=== PATIENT | female | born 1940 | race African-American/Black ===

== ENCOUNTER 2020-07-13 13:29 | Inpatient (IN) | payer MEDICARE ==
[~2020-07-13] VITALS: Ht 162.6 cm; Wt 113.4 kg
[~2020-07-13 13:29] MED LIST: EPINEPHRINE HCL SYRINGE ONE; SODIUM BICARBONATE 8.4% INJ 50 ML SYR ONE; SUCCINYLCHOLINE CHLORIDE 20 MG/ML 10ML VIAL ONE
[2020-07-13 14:06] LABS: BASOPHILS % 0.2 % (0.0-1.0); EOSINOPHILS # (AUTO) 0.3 (0.0-0.4); EOSINOPHILS % 1.5 % (0.0-6.0); HEMATOCRIT 23.1 % (34.2-44.1); HEMOGLOBIN 7.4 g/dL (12.0-16.0); LYMPHOCYTES # (AUTO) 0.5 (1.0-3.2); LYMPHOCYTES % 2.7 % (18.0-39.1); MEAN CORPUSCULAR HEMOGLOBIN 26.7 pg (28-32); MEAN CORPUSCULAR VOLUME 83.4 fL (81-99); MONOCYTES # (AUTO) 0.6 (0.2-0.8); MONOCYTES % 3.5 % (4.4-11.3); NEUTROPHILS # (AUTO) 16.5 (2.1-6.9); NEUTROPHILS % 90.3 % (38.7-80.0); PLATELET COUNT 442 x10e3/uL (140-360); RED BLOOD COUNT 2.77 x10e6/uL (3.6-5.1); RED CELL DISTRIBUTION WIDTH 16.9 % (11.7-14.4)
[2020-07-13 14:25] LABS: ALANINE AMINOTRANSFERASE 27 IU/L (0-55); ALBUMIN 1.1 g/dL (3.5-5.0); ALBUMIN/GLOBULIN RATIO 0.2 (0.8-2.0); ALKALINE PHOSPHATASE 115 IU/L (40-150); ANION GAP 10.4 mmol/L (8-16); BLOOD UREA NITROGEN 28 mg/dL (7-26); BUN/CREATININE RATIO 34 (6-25); CALCIUM 7.6 mg/dL (8.4-10.2); CARBON DIOXIDE 26 mmol/L (22-29); CHLORIDE 95 mmol/L (98-107); CREATININE, SERUM 0.83 mg/dL (0.57-1.11); EST GLOMERULAR FILTRATION RATE > 60 ML/MIN (60-); GLUCOSE 150 mg/dL (74-118); POTASSIUM 3.4 mmol/L (3.5-5.1); SODIUM 128 mmol/L (136-145)
[2020-07-13 14:49] LABS: BAND NEUTROPHILS % (MANUAL) 1 %; EOSINOPHILS % (MANUAL) 2 % (0-7); LYMPHOCYTES % (MANUAL) 1 % (19-48); MONOCYTES % (MANUAL) 4 % (3.4-9.0); MYELOCYTES % (MANUAL) 1 % (0-0); NEUTROPHILS % (MANUAL) 90 % (40-74)
[2020-07-13] MEDS: CEFEPIME 1GM/NS 0.9% 50 ML 50 ML IV SCH (14:50)
[2020-07-13 14:52] LABS: PLATELET ESTIMATE SLIGHTLY INCREASED
[2020-07-13 14:53] LABS: HYPOCHROMASIA SLIG; PLATELET MORPHOLOGY COMMENT NORMAL; POLYCHROMASIA FEW
[2020-07-13] MEDS ORDERED: SODIUM CHLORIDE 0.9% 1000ML 1,000 ML IV SCH (17:00)
[2020-07-13] MEDS: VANCOMYCIN 500MG/NS 0.9% 100ML 100 ML IV SCH (17:14)
[2020-07-13] MEDS ORDERED: LACTATED RINGER'S 500 ML IV ONE (17:15)
[2020-07-13] MEDS ORDERED: LACTATED RINGER'S 1,000 ML INJ ONE (17:15)
[2020-07-13 17:40] LABS: COLOR,URINE STRAW (YELLOW)
[2020-07-13 17:41] LABS: CLARITY,URINE CLOUDY (CLEAR); KETONES,URINE NEGATIVE (NEGATIVE); LEUKOCYTE ESTERASE ,URINE LARGE (NEGATIVE); NITRITE,URINE NEGATIVE (NEGATIVE); PROTEIN,URINE DIPSTICK 1+ (NEGATIVE); URINE UROBILINOGEN 0.2 mg/dL (0.2 - 1)
[2020-07-13] MEDS ORDERED: ONDANSETRON HCL INJ 2MG/ML 2ML 2 MG/ML VIAL IV PRN (17:45)
[2020-07-13] MEDS ORDERED: ACETAMINOPHEN 325 MG TAB PO PRN (17:45)
[2020-07-13 17:53] LABS: BACTERIA,URINE MODERATE /HPF; RBC,URINE 0-5 /HPF (0-5); WBC,URINE (MAN) 0-5 /HPF (0-5); YEAST,URINE MODERATE
[2020-07-13] MEDS ORDERED: IOPAMIDOL 370 MG/ML 200 ML INFUS..BTL INJ ONE (19:39)
[2020-07-13] MEDS ORDERED: GUAIFENESI100 MG/5 M PEG (22:25)
[2020-07-13] MEDS ORDERED: TYLENOL EXTRA500 MG PEG (22:25)
[2020-07-13] MEDS ORDERED: ARICEPT5 MG PEG (22:25)
[2020-07-13] MEDS ORDERED: TYLENOL # 31 EA PEG (22:25)
[2020-07-13] MEDS ORDERED: LEVEMIR FL100 UNIT/1 SC (22:25)
[2020-07-13] MEDS ORDERED: IPRAT-ALBUT 0.5-3 ML INH (22:25)
[2020-07-13] MEDS ORDERED: HUMALOG100 UNIT/3 SC (22:25)
[2020-07-13] MEDS ORDERED: Santyl TP (22:25)
[2020-07-13] MEDS ORDERED: AQUAPHOR HEALIN50 GM TOP (22:25)
[2020-07-13] MEDS ORDERED: ZOSYN 3.373.375 GM/5 IVP (22:25)
[2020-07-13] MEDS ORDERED: METHYLPHENIDATE5 MG PEG (22:25)
[2020-07-13] MEDS ORDERED: LACTATED RINGER'S 1,000 ML ONE (23:16)
[2020-07-14] MEDS: CEFEPIME 1GM/NS 0.9% 50 ML 50 ML IV SCH ×3 (01:04→16:17)
[2020-07-14] MEDS: VANCOMYCIN 500MG/NS 0.9% 100ML 100 ML IV SCH ×2 (02:10→17:43)
[2020-07-14 04:28] LABS: BASOPHILS % 0.2 % (0.0-1.0); EOSINOPHILS # (AUTO) 0.6 (0.0-0.4); EOSINOPHILS % 3.7 % (0.0-6.0); HEMOGLOBIN 7.2 g/dL (12.0-16.0); LYMPHOCYTES # (AUTO) 0.7 (1.0-3.2); LYMPHOCYTES % 4.1 % (18.0-39.1); MEAN CORPUSCULAR HEMOGLOBIN 26.7 pg (28-32); MEAN CORPUSCULAR HGB CONC 32.1 g/dL (31-35); NEUTROPHILS # (AUTO) 14.3 (2.1-6.9); NEUTROPHILS % 84.3 % (38.7-80.0); PLATELET COUNT 495 x10e3/uL (140-360)
[2020-07-14 04:29] LABS: HEMATOCRIT 22.4 % (34.2-44.1)
[2020-07-14 04:41] LABS: ANION GAP 11.4 mmol/L (8-16); BLOOD UREA NITROGEN 27 mg/dL (7-26); BUN/CREATININE RATIO 39 (6-25); CALCIUM 7.7 mg/dL (8.4-10.2); CARBON DIOXIDE 25 mmol/L (22-29); CHLORIDE 98 mmol/L (98-107); EST GLOMERULAR FILTRATION RATE > 60 ML/MIN (60-); GLUCOSE 85 mg/dL (74-118); POTASSIUM 3.4 mmol/L (3.5-5.1); SODIUM 131 mmol/L (136-145)
[2020-07-14] MEDS ORDERED: SODIUM CHLORIDE 0.9% 250ML 250 ML ONE (13:53)
[2020-07-14] MEDS ORDERED: NOREPINEPHRINE INJ 4MG/4ML 8 MG in DEXTROSE 5% 250ML 250 ML IV STA (14:39)
[2020-07-14] MEDS ORDERED: NOREPINEPHRINE 8 MG/D5W 250 ML 250 ML ONE ×2 (14:50→21:34)
[2020-07-14] MEDS ORDERED: NOREPINEPHRINE INJ 4MG/4ML 8 MG in DEXTROSE 5% 250ML 250 ML IV SCH (21:45)
[2020-07-15] VITALS (19 sets, daily range): BP systolic 85–133; BP diastolic 42–81
[2020-07-15] MEDS: VANCOMYCIN 500MG/NS 0.9% 100ML 100 ML IV SCH ×2 (02:39→15:12)
[2020-07-15 05:52] LABS: BASOPHILS % 0.2 % (0.0-1.0); EOSINOPHILS # (AUTO) 0.1 (0.0-0.4); EOSINOPHILS % 0.3 % (0.0-6.0); HEMATOCRIT 23.5 % (34.2-44.1); HEMOGLOBIN 7.4 g/dL (12.0-16.0); LYMPHOCYTES # (AUTO) 1.2 (1.0-3.2); LYMPHOCYTES % 7.1 % (18.0-39.1); MEAN CORPUSCULAR HGB CONC 31.5 g/dL (31-35); MEAN CORPUSCULAR VOLUME 85.8 fL (81-99); MONOCYTES # (AUTO) 1.6 (0.2-0.8); MONOCYTES % 9.6 % (4.4-11.3); NEUTROPHILS # (AUTO) 12.9 (2.1-6.9); NEUTROPHILS % 78.9 % (38.7-80.0); PLATELET COUNT 525 x10e3/uL (140-360); RED BLOOD COUNT 2.74 x10e6/uL (3.6-5.1)
[2020-07-15 06:24] LABS: ALANINE AMINOTRANSFERASE 28 IU/L (0-55); ALBUMIN 1.3 g/dL (3.5-5.0); ALBUMIN/GLOBULIN RATIO 0.3 (0.8-2.0); ALKALINE PHOSPHATASE 117 IU/L (40-150); ANION GAP 14.9 mmol/L (8-16); BLOOD UREA NITROGEN 34 mg/dL (7-26); BUN/CREATININE RATIO 37 (6-25); CALCIUM 7.9 mg/dL (8.4-10.2); CARBON DIOXIDE 24 mmol/L (22-29); CHLORIDE 97 mmol/L (98-107); CREATININE, SERUM 0.92 mg/dL (0.57-1.11); EST GLOMERULAR FILTRATION RATE > 60 ML/MIN (60-); GLUCOSE 109 mg/dL (74-118); POTASSIUM 3.9 mmol/L (3.5-5.1); SODIUM 132 mmol/L (136-145)
[2020-07-15 06:32] LABS: THYROID STIMULATING HORMONE 4.666 uIU/mL (0.350-4.940)
[2020-07-15] MEDS: CEFEPIME 1GM/NS 0.9% 50 ML 50 ML IV SCH (13:53)
[2020-07-15 15:07] LABS: % IRON SATURATION 7 % (15-50); IRON 10 ug/dL (50-170); TOTAL IRON BINDING CAPACITY 140 ug/dL (261-478); TRANSFERRIN 100 mg/dL (180-382)
[2020-07-16] VITALS (15 sets, daily range): BP systolic 94–142; BP diastolic 53–78
[2020-07-16] MEDS ORDERED: PROPOFOL IV EMULSION 10MG/ML 100 ML IV PRN (02:15)
[2020-07-16] MEDS: VANCOMYCIN 500MG/NS 0.9% 100ML 100 ML IV SCH (03:00)
[2020-07-16 03:54] LABS: BASOPHILS % 0.1 % (0.0-1.0); EOSINOPHILS % 0.2 % (0.0-6.0); LYMPHOCYTES # (AUTO) 0.5 (1.0-3.2); LYMPHOCYTES % 2.7 % (18.0-39.1); MEAN CORPUSCULAR HEMOGLOBIN 26.2 pg (28-32); MEAN CORPUSCULAR HGB CONC 31.8 g/dL (31-35); MONOCYTES # (AUTO) 0.7 (0.2-0.8); NEUTROPHILS # (AUTO) 14.5 (2.1-6.9); NEUTROPHILS % 87.3 % (38.7-80.0); PLATELET COUNT 391 x10e3/uL (140-360); RED BLOOD COUNT 2.44 x10e6/uL (3.6-5.1); RED CELL DISTRIBUTION WIDTH 16.9 % (11.7-14.4)
[2020-07-16 04:09] LABS: ANION GAP 16.5 mmol/L (8-16); POTASSIUM 3.5 mmol/L (3.5-5.1)
[2020-07-16 04:10] LABS: CALCIUM 7.6 mg/dL (8.4-10.2); CREATININE, SERUM 1.13 mg/dL (0.57-1.11)
[2020-07-16] MEDS: CEFEPIME 1GM/NS 0.9% 50 ML 50 ML IV SCH (04:15)
[2020-07-16 04:23] LABS: HEMOGLOBIN 6.4 g/dL (12.0-16.0)
[2020-07-16 04:24] LABS: HEMATOCRIT 20.1 % (34.2-44.1); MEAN CORPUSCULAR VOLUME 82.4 fL (81-99)
[2020-07-16] MEDS ORDERED: NOREPINEPHRINE INJ 4MG/4ML 8 MG in DEXTROSE 5% 250ML 250 ML IV PRN (05:15)
[2020-07-16] MEDS ORDERED: SODIUM CHLORIDE 0.9% 250ML 250 ML IV ONE (06:30)
[2020-07-16] MEDS ORDERED: DEXTROSE 50% SYRINGE 50 ML IV PRN (10:15)
[2020-07-16] MEDS: INSULIN REGULAR, HUMAN 100 UNIT/1 ML 3ML VIAL SQ SCH ×3 (11:30→21:00)
[2020-07-16 12:13] LABS: ABG HCO3 27 mmol/L (22-26); ABG PCO2 33 mmHg (35-45); ABG PH 7.51 (7.35-7.45); ABG PO2 145 mmHg (80-105); ABG TCO2 28
[2020-07-16] MEDS ORDERED: ALBUTEROL/IPRATROPIUM 3 ML NEB INH SCH (14:00)
[2020-07-16] MEDS: MEROPENEM 1GM 100 ML IV SCH ×2 (14:22→22:00)
[2020-07-16] MEDS ORDERED: FUROSEMIDE INJ 10 MG/ML 2 ML VIAL IV SCH (15:45)
[2020-07-16] MEDS ORDERED: INSULIN GLARGINE 100 UNITS/ML VIAL SQ SCH (21:00)
[2020-07-16] MEDS ORDERED: DONEPEZIL HCL 5 MG TAB PEG SCH (21:00)
[2020-07-16] MEDS ORDERED: SODIUM CHLORIDE 0.9% 250ML 250 ML ONE (23:25)
== END 2020-07-17 09:57 | disposition expired | DRG 871 ==
LOC: ER 13:39 → ERHOLD 15:56 → MED/SURG3 07-15 23:29 → ICU 07-16 03:24 → MED/SURG2 07-16 18:05
PROVIDERS: ADMIT Family Medicine; ATTEND Family Medicine
PROC: 02HV33Z Insertion of Infusion Device into Superior Vena Cava, Percutaneous Approach (ICD-10-PCS; principal; 2020-07-14)
PROC: 30243N1 Transfusion of Nonautologous Red Blood Cells into Central Vein, Percutaneous Approach (ICD-10-PCS; 2020-07-14)
PROC: 0BH17EZ Insertion of Endotracheal Airway into Trachea, Via Natural or Artificial Opening (ICD-10-PCS; 2020-07-16)
PROC: 5A1935Z Respiratory Ventilation, Less than 24 Consecutive Hours (ICD-10-PCS; 2020-07-16)
DX: A41.9 Sepsis, unspecified organism (principal); L89.894 Pressure ulcer of other site, stage 4; J69.0 Pneumonitis due to inhalation of food and vomit; R65.21 Severe sepsis with septic shock; G93.41 Metabolic encephalopathy; J96.00 Acute respiratory failure, unspecified whether with hypoxia or hypercapnia; E44.0 Moderate protein-calorie malnutrition; Z68.41 Body mass index [BMI] 40.0-44.9, adult; E87.1 Hypo-osmolality and hyponatremia; B37.49 Other urogenital candidiasis; D50.0 Iron deficiency anemia secondary to blood loss (chronic); E87.6 Hypokalemia; F09 Unspecified mental disorder due to known physiological condition; I10 Essential (primary) hypertension; I73.9 Peripheral vascular disease, unspecified; J43.9 Emphysema, unspecified; E83.51 Hypocalcemia; I46.9 Cardiac arrest, cause unspecified
CPT/HCPCS: 31500; 31720; 36415; 36569; 36600; 51700; 71045; 71260; 80048; 80053; 81001; 82805; 82948; 83540; 83605; 83880; 84443; 84466; 84484; 85025; 86850; 86900; 86920; 87040; 87071; 87086; 87186; 87205; 87449; 93005; 94002; 94003; 94640; 99251; 99284; J0171; J0330; J0692; J1940; J3370; J7030; J7050; J7120; J7121; P9016; Q9967; U0002